=== PATIENT | male | born 1980 | race Hispanic/Latino ===

== ENCOUNTER 2022-07-24 16:37 | Emergency (ER) | payer OTHER ==
[~2022-07-24] VITALS: Ht 175.3 cm; Wt 98.0 kg
[2022-07-24] MEDS ORDERED: MAG/ALUM/SIMETH 30 ML UDCUP PO ONE (17:00)
[2022-07-24] MEDS ORDERED: LIDOCAINE HCL 2% VISCOUS 15 ML UDCUP PO ONE (17:00)
[2022-07-24] MEDS ORDERED: ONDANSETRON 4MG INJ IVP ONE (17:00)
[2022-07-24] MEDS ORDERED: FAMOTIDINE 20MG VIAL IV ONE (17:00)
[2022-07-24] MEDS ORDERED: DICYCLOMINE HCL 10 MG/5 ML ML PO ONE (17:00)
[2022-07-24 17:12] LABS: BASOPHILS % (AUTO) 0.3 % (0.0-5.0); HEMATOCRIT 46.6 % (42-54); LYMPHOCYTES % (AUTO) 18.9 % (21.0-51.0); MEAN CORPUSCULAR HEMOGLOBIN 32.6 pg (27.0-33.0); MEAN CORPUSCULAR HGB CONC 35.4 g/dL (32.0-36.0); MEAN CORPUSCULAR VOLUME 92.1 fL (79-99); MONOCYTES % (AUTO) 7.6 % (3.0-13.0); NEUTROPHILS % (AUTO) 73.1 % (40.0-77.0); PLATELET COUNT (AUTO) 198 K/uL (130-400); RED BLOOD CELL COUNT(AUTO) 5.06 MIL/uL (4.50-6.20); RED CELL DISTRIBUTION WIDTH 12.5 % (11.0-15.5); WHITE BLOOD COUNT (AUTO) 7.8 K/uL (4.8-10.8)
[2022-07-24 17:22] LABS: CREATININE 1.2 mg/dL (0.5-1.5); POTASSIUM 4.3 mmol/L (3.5-5.1)
[2022-07-24 17:27] LABS: ALBUMIN 4.3 g/dL (3.5-5.0); TOTAL PROTEIN, SERUM 7.6 g/dL (6.0-8.3)
[2022-07-24] MEDS ORDERED: DICY20TA2 PO (18:00)
[2022-07-24] MEDS ORDERED: FAMO-136 PO (18:00)
[2022-07-24 18:04] VITALS: BP 137/76
== END 2022-07-24 18:05 | disposition home or self-care (01) ==
LOC: EDH 16:37
DX: K76.0 Fatty (change of) liver, not elsewhere classified (principal); D13.5 Benign neoplasm of extrahepatic bile ducts; F41.9 Anxiety disorder, unspecified; R03.0 Elevated blood-pressure reading, without diagnosis of hypertension; Z90.49 Acquired absence of other specified parts of digestive tract
CPT/HCPCS: 99284; 96374; 76705; 96375; 82550; 84484; 80053; 83690; 85025; 36415; J3490; J2405